=== PATIENT | female | born 1980 | race Caucasian/White ===

== ENCOUNTER 2018-02-22 18:26 | Emergency (ER) | payer SELFPAY ==
[2018-02-22 18:38] VITALS: BP 138/80; PULSE 96; RESP 20; TEMP 36.9; O2SAT 98; BMI 21.6
--- NOTE | 2018-02-22 18:38 | XR_ITS ---
XR knee RT 3V HISTORY: ITS.REASON: FELL DOWN STEPS ORDERING PHYSICIAN: Anamika Lopez PATIENT AGE: 37 years COMPARISON: None FINDINGS: No fracture or dislocation. No lytic or blastic change. Normal mineralization. No significant arthritic changes evident. No other significant findings IMPRESSION: Negative Knee
--- NOTE | 2018-02-22 19:13 | HMH.EDUTC ---
[facility] [place] Disposition Clinical Impression: Contusion, knee Qualifiers: Encounter type: initial encounter Laterality: right Qualified Code(s): S80.01XA - Contusion of right knee, initial encounter Disposition: Home, Self-Care Condition on Discharge: Good Instructions: DI for Knee Pain, How To Perform RICE (Rest, Ice, Compress, Elevate) Additional Instructions: *weight bearing as tolerated *RICE, Rest the extremity, Ice 15-20 minutes 3-4 times daily, Compress- wear the neil wrap as discussed as much as possible to help reduce swelling and pain, Elevate the extremity when at rest *Neil wrap is for support and help control swelling, use it except in the shower. Be sure that is not to tight but not to loose either *Elevate when resting *Ibuprofen every 6-8 hours as needed for pain an inflammation. If need something more can take Tylenol in between doses of Ibuprofen to help Immediately follow up for new or worsening of symptoms, or no noticeable improvement over the next 3-5 days Prescriptions: Ibuprofen [Ibuprofen 600mg Tab] 600 mg PO Q6H PRN #20 tab PRN Reason: Moderate Pain Referrals: Patrick Stevens MD [Staff Physician] - Jesus Willingham MD [Staff Physician] - Time of Disposition: 19:29 Medical Decision Making - Medical Records Medical records reviewed: Yes: I reviewed the patient's medical records. - Carlo Inquiry Pt receiving controlled substance: No Carlo was queried for this patient: No Vital Signs: 02/22/18 18:38 Temperature 98.5 F Temperature Source Temporal Artery Scan Pulse Rate [Right Brachial] 96 H Respiratory Rate 20 Blood Pressure [Right Arm] 138/80 Blood Pressure Mean [Right Arm] 99 Blood Pressure Source [Right Arm] Automatic Cuff Blood Pressure Position [Right Arm] Sitting 02 Sat by Pulse Oximetry 98 Oxygen Delivery Method Room Air - Lab Data Lab results reviewed: Yes: I reviewed the patient's lab results. Orders (Tests/Meds): ORDERS Category Date Time Status XR knee RT 3V Stat Exams 02/22/18 18:38 Taken - Radiology Data #1 Image(s): Knee Image Reviewed: Yes I reviewed the patient's radiology image w/the ED provider Preliminary Findings: No Fracture Seen [facility] [place] HPI - General Stated complaint: AO [id number] @2230 R Knee injury Time Seen by Provider: 02/22/18 18:50 Mode of Arrival: Family Vehicle Source of Information: Patient Limitations: No Limitations Description of Symptoms (Recalled from Triage Doc. by RN): S/P FALL DWON 3 STEPS. C/O RIGHT KNEE PAIN HEENT Symptoms (Recalled from RN notes): No Resp Symptoms (Recalled from RN notes): No Skin Symptoms (Recalled from RN notes): No MS Symptoms (Recalled from RN notes): Yes Functional Status (Recalled from RN notes): N/A - History of Present Illness Provider Complaint: Patient state that she was walking down steps last night when she lost her balance and fell down 3 steps and struck her right knee on the concrete State that ever since she has been having some pain in that knee States that she doesn't see any bruising but has a throbbing pain in the knee when she touches it - Related Data Previous Rx's Medication Instructions Recorded Ibuprofen [Ibuprofen 600mg Tab] 600 mg PO Q6H PRN #20 tab 02/22/18 Allergies Allergy/AdvReac Type Severity Reaction Status Date / Time No Known Allergies Allergy Verified 02/22/18 18:42 - Worker's Comp Is this a Worker's Comp case?: No [facility] History I have reviewed the patient's past medical history: Yes - Social History Smoking Status: Current every day smoker Tobacco Type: cigarettes Alcohol Intake: never - Psychiatric History Expresses thoughts of harming self/others: None Suicide Plan Description: No Plan ROS Obtained: Yes All systems reviewed & no additional complaints - Allergic/Immunologic Comments: Pain in right knee after falling on steps last night and landing on right knee Physical Exam - General General appearance: alert, in no apparent
--- NOTE | 2018-02-22 19:22 | ED_ITS ---
[facility] [place] Disposition Clinical Impression: Contusion, knee Qualifiers: Encounter type: initial encounter Laterality: right Qualified Code(s): S80.01XA - Contusion of right knee, initial encounter Disposition: Home, Self-Care Condition on Discharge: Good Instructions: DI for Knee Pain, How To Perform RICE (Rest, Ice, Compress, Elevate) Additional Instructions: *weight bearing as tolerated *RICE, Rest the extremity, Ice 15-20 minutes 3-4 times daily, Compress- wear the neil wrap as discussed as much as possible to help reduce swelling and pain, Elevate the extremity when at rest *Neil wrap is for support and help control swelling, use it except in the shower. Be sure that is not to tight but not to loose either *Elevate when resting *Ibuprofen every 6-8 hours as needed for pain an inflammation. If need something more can take Tylenol in between doses of Ibuprofen to help Immediately follow up for new or worsening of symptoms, or no noticeable improvement over the next 3-5 days Prescriptions: Ibuprofen [Ibuprofen 600mg Tab] 600 mg PO Q6H PRN #20 tab PRN Reason: Moderate Pain Referrals: Patrick Stevens MD [Staff Physician] - Jesus Willingham MD [Staff Physician] - Time of Disposition: 19:29 Medical Decision Making - Medical Records Medical records reviewed: Yes: I reviewed the patient's medical records. - Carlo Inquiry Pt receiving controlled substance: No Carlo was queried for this patient: No Vital Signs: 02/22/18 18:38 Temperature 98.5 F Temperature Source Temporal Artery Scan Pulse Rate [Right Brachial] 96 H Respiratory Rate 20 Blood Pressure [Right Arm] 138/80 Blood Pressure Mean [Right Arm] 99 Blood Pressure Source [Right Arm] Automatic Cuff Blood Pressure Position [Right Arm] Sitting 02 Sat by Pulse Oximetry 98 Oxygen Delivery Method Room Air - Lab Data Lab results reviewed: Yes: I reviewed the patient's lab results. Orders (Tests/Meds): ORDERS Category Date Time Status XR knee RT 3V Stat Exams 02/22/18 18:38 Taken - Radiology Data #1 Image(s): Knee Image Reviewed: Yes I reviewed the patient's radiology image w/the ED provider Preliminary Findings: No Fracture Seen [facility] [place] HPI - General Stated complaint: AO [id number] @2230 R Knee injury Time Seen by Provider: 02/22/18 18:50 Mode of Arrival: Family Vehicle Source of Information: Patient Limitations: No Limitations Description of Symptoms (Recalled from Triage Doc. by RN): S/P FALL DWON 3 STEPS. C/O RIGHT KNEE PAIN HEENT Symptoms (Recalled from RN notes): No Resp Symptoms (Recalled from RN notes): No Skin Symptoms (Recalled from RN notes): No MS Symptoms (Recalled from RN notes): Yes Functional Status (Recalled from RN notes): N/A - History of Present Illness Provider Complaint: Patient state that she was walking down steps last night when she lost her balance and fell down 3 steps and struck her right knee on the concrete State that ever since she has been having some pain in that knee States that she doesn't see any bruising but has a throbbing pain in the knee when she touches it - Related Data Previous Rx's Medication Instructions Recorded Ibuprofen [Ibuprofen 600mg Tab] 600 mg PO Q6H PRN #20 tab 02/22/18 Allergies Allergy/AdvReac Type Severity Reaction Status Date / Time No Known Allergies Allergy Verified 02/22/18 18:42
[2018-02-22 19:32] VITALS: BP 128/80; PULSE 90; RESP 20; TEMP 36.9; O2SAT 97
== END 2018-02-22 19:33 | disposition home or self-care (01) ==
PROVIDERS: Emergency Provider Nurse Practitioner
DX: S80.01XA Contusion of right knee, initial encounter (principal); W10.9XXA Fall (on) (from) unspecified stairs and steps, initial encounter; Y92.018 Other place in single-family (private) house as the place of occurrence of the external cause
CPT/HCPCS: 73562; 99201

== ENCOUNTER 2018-08-04 08:53 | Observation (INO) ==
[2018-08-04 09:11] LABS: Microscopic, Urine URINE MICROSCOPIC (MICROSCOPIC)
--- NOTE | 2018-08-04 09:21 | Emergency Department Note ---
ED Disposition Clinical Impression: Liver cirrhosis, Hepatitis C virus, Sciatica, Polysubstance (excluding opioids) dependence, Pancreatitis, Colitis Disposition: Home, Self-Care Condition on Discharge: Fair Instructions: DI for Low Back Pain Referrals: Maria Eugenia Chance APRN [Primary Care Provider] - - Critical Care Critical Care Time: No Attestation: On , the high probability of a clinically significant, sudden or life threatening deterioration of the following system(s) required my full and direct attention, intervention and personal management. The time I documented below is in addition to time spent performing reported procedures but includes the following listed in this critical care notation. Medical Decision Making - Carlo Inquiry Pt receiving controlled substance: No Carlo was queried for this patient: No Vital Signs: 08/04/18 09:02 08/04/18 09:08 08/04/18 11:15 Temperature 98.6 F 98.6 F Temperature Source Oral Oral Pulse Rate [Right Brachial] 101 H 101 H 61 Respiratory Rate 20 20 Blood Pressure [Right Arm] 102/67 102/67 100/61 Blood Pressure Mean [Right Arm] 78 78 74 Blood Pressure Source [Right Arm] Automatic Cuff Automatic Cuff Automatic Cuff Blood Pressure Position [Right Arm] Sitting Sitting Sitting 02 Sat by Pulse Oximetry 98 98 99 Oxygen Delivery Method Room Air Room Air 08/04/18 11:58 08/04/18 14:00 Temperature Temperature Source Pulse Rate [Right Brachial] 72 90 Respiratory Rate 18 Blood Pressure [Right Arm] 112/70 104/61 Blood Pressure Mean [Right Arm] 84 75 Blood Pressure Source [Right Arm] Automatic Cuff Automatic Cuff Blood Pressure Position [Right Arm] Sitting Sitting 02 Sat by Pulse Oximetry 99 96 Oxygen Delivery Method Room Air - Lab Data Lab Results 08/04/18 09:00: Urine Color Yellow, Urine Appearance Clear, Urine pH 6.0, Ur Specific [place] 1.025, Urine Protein Negative, Urine Glucose (UA) Negative, Urine Ketones Trace, Urine Blood Negative, Urine Nitrate Negative, Urine Bilirubin Negative, Urine Urobilinogen 4.0, Ur Leukocyte Esterase Trace, Urine RBC None, Urine WBC 3-5, Ur Squamous Epith Cells 3-5, Urine Bacteria 1+, Urine Mucus 2+ 08/04/18 09:00: Urine HCG, Qual Negative 08/04/18 09:20: WBC 7.4, RBC 4.14 L, Hgb 10.4 L, Hct 33.9 L, MCV 81.9, MCH 25.1 L, MCHC 30.7 L, RDW 19.0 H, Plt Count 209, MPV 8.9, Neut % (Auto) 60.6, Lymph % (Auto) 26.5, [place] % (Auto) 5.2, Eos % (Auto) 7.1, Baso % (Auto) 0.6, Neut # (Auto) 4.5, Lymph # (Auto) 2.0, [place] # (Auto) 0.4, Eos # (Auto) 0.5 H, Baso # (Auto) 0.0 08/04/18 09:20: Sodium 138, Potassium 3.3 L, Chloride 108 H, Carbon Dioxide 26, Anion Gap 7.3, BUN 8, Creatinine 0.87, Estimated Creat Clear 94, Estimated GFR 73, Est GFR ( Amer) 89, Glucose 136 H, Calcium 8.1 L, Total Bilirubin 0 .8, AST 66 H, ALT 65, Alkaline Phosphatase 105, Troponin I < 0.02, Total Protein 6.7, Albumin 2.3 L, Globulin 4.4 H, Albumin/Globulin Ratio 0.5 L, Lipase 233 08/04/18 09:20: Magnesium 1.8 08/04/18 10:38: Urine Opiates Screen Negative, Urine Methadone Screen Negative, Ur Barbituates Screen Negative, Ur Phencyclidine Scrn Negative, Ur Amphetamines Screen Positive H, U Benzodiazepines Scrn Negative, Urine Cocaine Screen Nega tive, U Marijuana (THC) Screen Positive H 08/04/18 10:50: Lactate 1.3 Result diagrams: 08/04/18 09:20 08/04/18 09:20 Orders (Tests/Meds): ED MEDICATIONS Generic Name Dose Route Start Last Admin Trade Name Freq PRN Reason Stop Dose Admin Metronidazole 100 mls @ 100 mls/hr 08/04/18 10:45 08/04/18 11:04 Flagyl 500mg/100ml Ivpb IV 08/18/18 10:44 100 mls/hr Q8H ALIS Administration Protocol Discontinued Medications Generic Name Dose Route Start Last Admin Trade Name Freq PRN Reason Stop Dose Admin Diatrizoate Meglum/Diatrizoate Sod 30 ml 08/04/18 11:15 08/04/18 11:19 Gastrografin 66%-10% 30ml PO 08/04/18 11:16 30 ml ONCE ONE Administration Famotidine 20 mg 08/04/18 09:18 08/04/18 09:33 Pepcid 20mg/2ml Vial IV 08/04/18 09:19 20 mg ONCE ONE Administration Iopamidol 75 ml 08/04/18 13:05 08/04/18 13:07 Rad-Isovue 300 75ml IV 08/04/18 13:06 75 ml ONCE ONE Administration Protocol Ketorolac Tromethamine 30 mg 08/04/18 09:18 08/04/18 09:33 Toradol 30mg/Ml Vial IV 08/04/18 09:19 30 mg ONCE ONE Administration Methylprednisolone Sodium Succinate 125 mg 08/04/18 09:18 08/04/18 09:33 Solu-Medrol 125mg/2ml Vial IV 08/04/18 09:19 125 mg ONCE ONE Administration Ondansetron HCl 4 mg 08/04/18 09:32 08/04/18 09:33 Zofran 4mg/2ml Vial IV 08/04/18 09:33 4 mg ONCE ONE Administration Potassium Chloride 20 meq 08/04/18 11:13 08/04/18 11:19 Klor-Con 20meq Tablet PO 08/04/18 11:14 20 meq ONCE ONE Administration Promethazine HCl 12.5 mg 08/04/18 11:19 08/04/18 11:26 Phenergan 25mg/Ml 1ml Vial IV 08/04/18 11:20 12.5 mg ONCE ONE Administration Sodium Chloride 25 ml 08/04/18 11:19 08/04/18 11:26 Sod Chlor 0.9% 25ml Bag IV 08/04/18 11:20 25 ml ONCE ONE Administration Sodium Chloride 10 ml 08/04/18 13:05 08/04/18 13:07 Rad-Saline Flush 10ml Syringe IV 08/04/18 13:06 10 ml ONCE ONE Administration ORDERS Category Date Time Status Blood Culture Stat Micro 08/04/18 10:50 Received - CT Data CT Scan: Abdomen, Pelvis Time Received: 10:[address] Reviewed: Yes: I have viewed the radiologist's interpretation Preliminary Findings: Abnormal Findings Narrative: MPRESSION: 1. Cirrhosis with portal hypertension 2. Mild diffuse stranding of the mesenteric fat is a small amount of fluid in right paracolic gutter and pelvis. This stranding could be related to cirrhosis with hypoproteinemia. Peritonitis is an additional consideration. Please correlate with clinical findings. 3. There are multiple unopacified bowel loops present within the abdomen/pelvis which could obscure or mimic pathology. If symptoms persists, consider repeating exam with IV and oral contrast administration 4. There is prominence of the pancreatic head incompletely evaluated without IV contrast 5. No renal or ureteral calculi or hydronephrosis Medical Decision Narrative: She was medicated with Toradol Solu-Medrol and Pepcid prior to evaluating her due to her discomfort secondary to pain. 10 minutes afterwards she vomited she was given Zofran with good result. Please see full examination and exam section. The patient nausea resolved but she continued to complain of pain. I spoke with Reina Chance her primary care physician later with Dr. Lutz who requested a surgical opinion before deciding what admitting her. 1100 have contacted on-call surgeon Dr. Jeferson To twice with no response so I ordered her CT scan with p.o. and IV contrast. The patient became nauseous and vomited her contrast. [address] Jeferson To who advised to get consult to gastroenterology, or only crime investigator special agent comes on Friday, to be calling [facility]. 1330 CT report: IMPRESSION: 1. Edematous appearance of the body and head of the pancreas with stranding of the peripancreatic fat and infiltration of the central mesenteric fat. Possibly related to pancreatitis. There is splenomegaly. Portal hypertension could also cause these findings. 2. Diffuse thickening of the ascending and proximal transverse colon consistent with colitis with a small amount fluid in the paracolic gutter on the right. I called [facility] spoke with Dr. Rita Butler about the above reading. She felt that the patient can be cared here at [facility] with the surgery backup. 14[address] called and spoke with Dr. Lutz went over the second CT scan report agreed to admit the patient for IVF and Iv Abx. Back Pain HPI - General Chief Complaint: Back Pain/Injury Stated Complaint: back pain Time Seen by Provider: 08/04/18 09:05 Mode of Arrival: Ambulatory Limitations: No Limitations Description of Symptoms (Recalled from ER Triage Doc. by RN): Pt c/o lower back pain on iraj sides of back, states pain began approx 1930 lastnight. Pt denies urinary symptoms - History of Present Illness HPI Narrative: 38 years old white female status post cholecystectomy and appendectomy who is currently on drug court due to prior Methadon IV drug abuse charge, she has been clean for 3 weeks. She has history of hepatitis C virus and liver cirrhosis. Yesterday at 7:30 PM, she developed lower back pain sharp in character worse this morning to 10/10 associated with radiation to the right lower extremity. Pain is radiating to the lateral aspect of the right lower extremity above the knee, the pain is worse with standing and walking. There is no numbness or tingling no weakness no loss of urine or bowel. She has no chest pain no palpitation no shortness of breath, she has no hemoptysis hemat emesis coffee-ground emesis melanotic stool or bleeding per. She has no dysuria hematuria or frequency. She did have history of back pain and a kidney stone 6 years ago. MD Complaint: back pain Onset (ago): hour(s) (14 hours) Duration: constant Similar Symptoms Previously: Yes Location: lumbar spine, sacrum Severity: severe Quality: sharp Radiation: right leg Severity scale (1-10): 10 Relieving factors: immobilization Exacerbating factors: movement Associated symptoms: denies other symptoms - Related Data Home Medications Medication Instructions Recorded Confirmed No Known Home Medications 08/04/18 08/04/18 Allergies Allergy/AdvReac Type Severity Reaction Status Date / Time No Known Allergies Allergy Verified 08/04/18 09:08 [facility] History I have reviewed the patient's past medical history: Yes Medical History: Reports:: Hepatitis Denies:: Cancer, Diabetes Mellitus Type 1, Diabetes Mellitus Type 2, MRSA Other Medical History: Reports: Other Other Surgeries: Yes: Appendectomy, Cholecystectomy Amputation: No Fractures: No - Social History Smoking Status: Current every day smoker Tobacco Type: cigarettes # Packs/Day (cigarettes): 1 #Yrs smoked (if former smoker): 25 Alcohol Intake: never Alcohol Intake Frequency:: 3 or more drinks per day Substance Use Type: unknown, former substance user, heroin, methamphetamine Occupational Status: unemployed Housing: house Household Members: family - Psychiatric History Expresses thoughts of harming self/others: None Suicide Plan Description: No Plan ROS Obtained: Yes All systems reviewed & no additional complaints Physical Exam - General General appearance: alert, in no apparent distress, anxious, other (The patient is slender and looks older than her stated age.) - Head Head exam: atraumatic, normocephalic, normal inspection - Eye Eye exam: Present: normal appearance, PERRL, EOMI. Absent: scleral icterus, nystagmus - ENT ENT exam: Present: normal exam, normal oropharynx, mucous membranes moist, TM's normal bilaterally, normal external ear exam - Neck Neck exam: Present: normal inspection, full ROM, trachea midline. Absent: tenderness, meningismus, lymphadenopathy - Chest Chest inspection: Present: normal inspection, symmetric chest wall rise. Absent: tenderness - Respiratory Respiratory exam: Present: normal lung sounds bilaterally. Absent: respiratory distress, wheezes, stridor - Cardiovascular Cardiovascular exam: Present: regular rate, normal rhythm, normal heart sounds. Absent: JVD - Abdominal Exam Abdominal exam: Present: soft, tenderness, normal bowel sounds, other (Patient is going has bilateral flank pain worse on the right than left.). Absent: distention, guarding, rebound, rigidity, Abdalla's sign, tenderness at McBurney's Point - External exam: Present: normal external exam - Extremities Exam Extremities exam: Present: normal inspection, full ROM, normal capillary refill. Absent: tenderness, calf tenderness - Back Exam Back exam: Present: normal inspection, tenderness, paraspinal tenderness, straight leg raise (R), other (She does have tenderness over the right paraspinal muscles and lower sacrum. ). Absent: CVA tenderness (R), CVA tenderness (L), vertebral tenderness - Neurological Exam Neurological exam: Present: alert, oriented X3, CN II-XII intact, motor sensory deficit, reflexes normal, other (The patient has an antalgic gait she has a straight leg raising 80 on the right 90 on the left. ) - Psychiatric Psychiatric exam: Present: normal affect, normal mood - Skin Skin exam: Present: warm, dry, intact, normal color - Lymphatic Lymphatic Findings: no adenopathy
[2018-08-04 09:26] LABS: Appearance,Urine CLEAR (Clear); Blood, Urine Negative (Negative); Color,Urine YELLOW (Yellow); Glucose,Urine (UA) Negative (Negative); Ketones,Urine TRACE (Negative); Leukocyte Esterase,Urine TRACE (Negative); Protein,Urine Negative (Negative); Specific Gravity, Urine 1.025 (1.005-1.030)
[2018-08-04 09:29] LABS: Bilirubin,Urine Negative (Negative)
[2018-08-04 09:33] LABS: Basophils % 0.6 % (0.1-2.0); Eosinophils # 0.5 K/mm3 (0.0-0.4); Eosinophils % 7.1 % (0.1-12.0); Hematocrit 33.9 % (37.0-47.0); Hemoglobin 10.4 g/dL (12.2-16.2); Lymphocytes % 26.5 K/mm3 (10-50); Mean Corpuscular HGB Conc 30.7 g/dL (31.8-35.4); Mean Corpuscular Hemoglobin 25.1 pg (27.0-31.2); Mean Corpuscular Volume 81.9 fl (81-99); Mean Platelet Volume 8.9 fl (7.4-10.4); Monocytes # 0.4 K/mm3 (0.1-1.0); Monocytes % 5.2 % (1.7-9.3); Neutrophils # 4.5 K/mm3 (1.8-7.8); Neutrophils % 60.6 % (37.0-80.0); Platelet Count 209 K/mm3 (142-424); Red Blood Count 4.14 M/mm3 (4.20-5.40); White Blood Count 7.4 K/mm3 (4.8-10.8)
[2018-08-04 09:37] LABS: Bacteria,Urine 1+ /lpf; Mucus,Urine 2+ /lpf
[2018-08-04 09:49] LABS: Alanine Aminotransferase 65 U/L (12-78); Albumin Level 2.3 gm/dL (3.4-5.0); Albumin/Globulin Ratio 0.5 (1.1-1.8); Alkaline Phosphatase 105 U/L (46-116); Anion Gap 7.3 mEq/L (5-15); Aspartate Amino Transferase 66 U/L (15-37); Bilirubin,Total 0.8 mg/dL (0.2-1.0); Blood Urea Nitrogen 8 mg/dL (7-18); Calcium 8.1 mg/dL (8.5-10.1); Carbon Dioxide 26 mmol/L (21.0-32.0); Chloride 108 mmol/L (98-107); Globulin 4.4 gm/dl (1.3-3.2); Glucose 136 mg/dL (74-106); Lipase 233 u/L (73-393); Potassium 3.3 mmoL/L (3.5-5.1); Sodium 138 mmol/L (136-145); Total Protein,Serum 6.7 gm/dL (6.4-8.2)
[2018-08-04 10:55] LABS: Amphetamine/Metha Screen,Urine Positive ng/mL (<1000); Barbiturates Screen,Urine Negative ng/mL (<200); Benzodiazepines Screen,Urine Negative ng/mL (<200); Cannabinoid Screen,Urine Positive ng/mL (<50); Cocaine Screen,Urine Negative ng/mL (<300); Methadone Screen,Urine Negative ng/mL (<300); Opiate Screen,Urine Negative ng/mL (<300); Phencyclidine Screen,Urine Negative ng/mL (<25)
--- NOTE | 2018-08-04 15:50 | Pharmacy Consult Notes ---
[facility] [place] Pharmacy VTE Monitoring - Patient Demographics Admission date: 08/04/18 Report Date: 08/04/18 Time: 15:49 Allergies/Adverse Reactions: Patient Allergies No Known Allergies Allergy (Verified 08/04/18 09:08) Height: 1.7 m Weight: 69.485 kg Patient Problems: Current Active Problems Liver cirrhosis (Acute) Hepatitis C virus (Acute) Sciatica (Acute) Polysubstance (excluding opioids) dependence (Acute) Pancreatitis (Acute) Colitis (Acute) - VTE Risk Labs: VTE Related Lab Results Hgb 10.4 g/dL (12.2-16.2) L 08/04/18 09:20 Hct 33.9 % (37.0-47.0) L 08/04/18 09:20 Plt Count 209 K/mm3 (142-424) 08/04/18 09:20 BUN 8 mg/dL (7-18) 08/04/18 09:20 Creatinine 0.87 mg/dL (0.55-1.02) 08/04/18 09:20 Estimated Creat Clear 94 mL/min (0-300) 08/04/18 09:20 - Prophylaxis VTE Prophylaxis Ordered?: Yes Types of VTE Prophylaxis: TEDS Knee High
[2018-08-05 06:39] LABS: Basophils % 0.1 % (0.1-2.0); Eosinophils # 0.1 K/mm3 (0.0-0.4); Eosinophils % 0.4 % (0.1-12.0); Hematocrit 31.1 % (37.0-47.0); Hemoglobin 9.5 g/dL (12.2-16.2); Lymphocytes # 1.8 K/mm3 (0.7-4.5); Lymphocytes % 12.8 K/mm3 (10-50); Mean Corpuscular HGB Conc 30.7 g/dL (31.8-35.4); Mean Corpuscular Hemoglobin 25.3 pg (27.0-31.2); Mean Corpuscular Volume 82.6 fl (81-99); Mean Platelet Volume 8.5 fl (7.4-10.4); Monocytes # 0.6 K/mm3 (0.1-1.0); Monocytes % 4.5 % (1.7-9.3); Neutrophils # 11.5 K/mm3 (1.8-7.8); Neutrophils % 82.2 % (37.0-80.0); Platelet Count 177 K/mm3 (142-424); Red Blood Count 3.76 M/mm3 (4.20-5.40); Red Cell Distribution Width 18.9 % (11.5-17.5)
[2018-08-05 06:49] LABS: Albumin Level 2.1 gm/dL (3.4-5.0); Albumin/Globulin Ratio 0.5 (1.1-1.8); Anion Gap 9.2 mEq/L (5-15); Bilirubin,Total 0.5 mg/dL (0.2-1.0); Globulin 4.1 gm/dl (1.3-3.2); Potassium 3.2 mmoL/L (3.5-5.1); Total Protein,Serum 6.2 gm/dL (6.4-8.2)
--- NOTE | 2018-08-05 08:22 | History & Physical Report ---
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 She has history of hepatitis C virus and liver cirrhosis. Yesterday at 7:30 PM, she developed lower back pain sharp in character worse this morning to 1010 associated with radiation to the right lower extremity. Pain is radiating to the lateral aspect of the right lower extremity above the knee, the pain is worse with standing and walking. There is no numbness or tingling no weakness no loss of urine or bowel. She has no chest pain no palpitation no shortness of breath, she has no hemoptysis hematemesis coffee-ground emesis melanotic stool or bleeding per. She has no dysuria hematuria or frequency. [facility] History I have reviewed the patient's past medical history: Yes Medical History: Reports:: Hepatitis Denies:: Cancer, Diabetes Mellitus Type 1, Diabetes Mellitus Type 2, MRSA Other Medical History: Reports: Other Other Surgeries: Yes: Appendectomy, Cholecystectomy, , Tubal Ligation Amputation: No Fractures: No - *Social History Smoking Status: Current every day smoker Tobacco Type: cigarettes # Packs/Day (cigarettes): 1 #Yrs smoked (if former smoker): 25 Alcohol Intake: former Alcohol Intake Frequency:: 3 or more drinks per day Substance Use Type: amphetamines Occupational Status: unemployed Housing: house Household Members: family - Psychiatric History Expresses thoughts of harming self/others: None Suicide Plan Description: No Plan Review of Systems - Review of Systems Review of systems:: pertinent systems reviewed and negative unless documented below - Constitutional Denies fever(s) - Eyes Denies change in vision - ENT Denies sore throat - *Cardiovascular Denies chest pain - *Respiratory Denies cough, Denies coughing up blood - *Gastrointestinal Reports abdominal pain, Reports nausea, Denies black, tarry stools, Denies vomiting - *Genitourinary Denies blood in urine - *Musculoskeletal Reports back pain, Denies joint pain - Integumentary/Breasts Denies rash - *Neurologic Denies confusion, Denies seizure-like activity - Psychiatric Reports anxiety Meds Home Medications Medication Instructions Recorded Confirmed Type No Known Home Medications 08/04/18 08/04/18 History Allergies Allergy/AdvReac Type Severity Reaction Status Date / Time No Known Allergies Allergy Verified 08/04/18 09:08 Exam Vital signs and Labs for Last 24 Hours: Temp Pulse Resp BP Pulse Ox 98.7 F 91 H 16 101/67 96 08/05/18 07:29 08/05/18 07:29 08/05/18 07:29 08/05/18 07:29 08/05/18 07:29 Laboratory Results - last 24 hr 08/04/18 09:00: Urine Color Yellow, Urine Appearance Clear, Urine pH 6.0, Ur Specific [place] 1.025, Urine Protein Negative, Urine Glucose (UA) Negative, Urine Ketones Trace, Urine Blood Negative, Urine Nitrate Negative, Urine Bilirubin Negative, Urine Urobilinogen 4.0, Ur Leukocyte Esterase Trace, Urine RBC None, Urine WBC 3-5, Ur Squamous Epith Cells 3-5, Urine Bacteria 1+, Urine Mucus 2+ 08/04/18 09:00: Urine HCG, Qual Negative 08/04/18 09:20: WBC 7.4, RBC 4.14 L, Hgb 10.4 L, Hct 33.9 L, MCV 81.9, MCH 25.1 L, MCHC 30.7 L, RDW 19.0 H, Plt Count 209, MPV 8.9, Neut % (Auto) 60.6, Lymph % (Auto) 26.5, [place] % (Auto) 5.2, Eos % (Auto) 7.1, Baso % (Auto) 0.6, Neut # (Auto) 4.5, Lymph # (Auto) 2.0, [place] # (Auto) 0.4, Eos # (Auto) 0.5 H, Baso # (Auto) 0.0 08/04/18 09:20: Sodium 138, Potassium 3.3 L, Chloride 108 H, Carbon Dioxide 26, Anion Gap 7.3, BUN 8, Creatinine 0.87, Estimated Creat Clear 94, Estimated GFR 73, Est GFR ( Amer) 89, Glucose 136 H, Calcium 8.1 L, Total Bilirubin 0.8, AST 66 H, ALT 65, Alkaline Phosphatase 105, Troponin I < 0.02, Total Protein 6.7, Albumin 2.3 L, Globulin 4.4 H, Albumin/Globulin Ratio 0.5 L, Lipase 233 08/04/18 09:20: Magnesium 1.8 08/04/18 10:38: Urine Opiates Screen Negative, Urine Methadone Screen Negative, Ur Barbituates Screen Negative, Ur Phencyclidine Scrn Negative, Ur Amphetamines Screen Positive H, U Benzodiazepines Scrn Negative, Urine Cocaine Screen Negative, U Marijuana (THC) Screen Positive H 08/04/18 10:50: Lactate 1.3 08/05/18 05:43: WBC 14.0 H D, RBC 3.76 L, Hgb 9.5 L, Hct 31.1 L, MCV 82.6, MCH 25.3 L, MCHC 30.7 L, RDW 18.9 H, Plt Count 177, MPV 8.5, Neut % (Auto) 82.2 H, Lymph % (Auto) 12.8, [place] % (Auto) 4.5, Eos % (Auto) 0.4, Baso % (Auto) 0.1, Neut # (Auto) 11.5 H, Lymph # (Auto) 1.8, [place] # (Auto) 0.6, Eos # (Auto) 0.1, Baso # (Auto) 0.0 08/05/18 05:43: Sodium 143, Potassium 3.2 L, Chloride 112 H, Carbon Dioxide 25, Anion Gap 9.2, BUN 9, Creatinine 0.67 D, Estimated Creat Clear 126, Estimated GFR 99, Est GFR ( Amer) 120 D, Glucose 100 D, Calcium 8.0 L, Magnesium 1.9, Total Bilirubin 0.5, AST 41 H D, ALT 54, Alkaline Phosphatase 109, Total Protein 6.2 L, Albumin 2.1 L, Globulin 4.1 H, Albumin/Globulin Ratio 0.5 L I & O for Last 24 hours: Intake & Output 08/02/18 08/03/18 08/04/18 08/05/18 11:59 11:59 11:59 11:59 Intake Total 350 / 350 Balance 350 / 350 Weight 148 lb 153 lb 3 oz - Constitutional no acute distress - *Routine HEENT Exam Head: Present: normocephalic Eye: Present: EOMI, PERRL ENT: Present: mucous membranes dry - *Routine Neck Exam Present: supple - *Routine Respiratory Exam Present: CTA bilaterally - *Routine Cardiovascular Exam Present: RRR, murmur - *Routine Abdominal Exam Present: soft. Absent: tenderness - *Routine Extremities Exam Absent: calf tenderness - Routine Back/Spine/Pelvis Exam Back/Spine: Present: paraspinal tenderness, pain with rotation. Absent: CVA tenderness - *Routine Skin Exam Present: intact - *Routine Neurological Exam Present: alert, oriented X3, CN II-XII intact - Routine Psychiatric Exam Present: normal affect Assessment and Plan (1) Colitis Current visit: Yes Status: Acute Category: Medical Code(s): K52.9 - Noninfective gastroenteritis and colitis, unspecified (2) Hepatitis C virus Current visit: Yes Status: Acute Category: Medical Code(s): B19.20 - Unspecified viral hepatitis C without hepatic coma (3) Liver cirrhosis Current visit: Yes Status: Acute Category: Medical Code(s): K74.60 - Unspecified cirrhosis of liver (4) Pancreatitis Current visit: Yes Status: Acute Category: Medical Code(s): K85.90 - Acute pancreatitis without necrosis or infection, unspecified (5) Tobacco use Current visit: Yes Status: Acute Category: Social Hx Code(s): Z72.0 - Tobacco use (6) Anemia Current visit: Yes Status: Acute Qualifiers: Anemia type: unspecified type Qualified Code(s): D64.9 - Anemia, unspecified Category: Medical Code(s): D64.9 - Anemia, unspecified (7) Lumbar pain Current visit: Yes Status: Acute Category: Medical Code(s): M54.5 - Low back pain
[2018-08-06 08:30] LABS: Basophils % 0.3 % (0.1-2.0); Eosinophils # 0.4 K/mm3 (0.0-0.4); Eosinophils % 5.3 % (0.1-12.0); Hematocrit 31.7 % (37.0-47.0); Hemoglobin 9.8 g/dL (12.2-16.2); Lymphocytes # 1.7 K/mm3 (0.7-4.5); Lymphocytes % 25.2 K/mm3 (10-50); Mean Corpuscular HGB Conc 30.8 g/dL (31.8-35.4); Mean Corpuscular Hemoglobin 25.4 pg (27.0-31.2); Mean Corpuscular Volume 82.5 fl (81-99); Mean Platelet Volume 10.6 fl (7.4-10.4); Monocytes # 0.3 K/mm3 (0.1-1.0); Neutrophils # 4.4 K/mm3 (1.8-7.8); Neutrophils % 64.1 % (37.0-80.0); Platelet Count 128 K/mm3 (142-424); Red Blood Count 3.84 M/mm3 (4.20-5.40); Red Cell Distribution Width 18.9 % (11.5-17.5); White Blood Count 6.8 K/mm3 (4.8-10.8)
[2018-08-06 08:45] LABS: Albumin/Globulin Ratio 0.5 (1.1-1.8); Anion Gap 10.4 mEq/L (5-15); Bilirubin,Total 0.6 mg/dL (0.2-1.0); Calcium 7.6 mg/dL (8.5-10.1); Globulin 4.1 gm/dl (1.3-3.2); Potassium 3.4 mmoL/L (3.5-5.1); Total Protein,Serum 6.1 gm/dL (6.4-8.2)
--- NOTE | 2018-08-06 08:50 | Discharge Summary ---
General - General Admission date:: 08/04/18 Discharge date: 08/06/18 HPI HPI: this is a wf who has 1 day hx of back pain with nausea with no fever and no diarrhea who presented to [facility] ed - white female status post cholecystectomy and appendectomy who is currently on drug court due to prior Methadon IV drug abuse charge, she has been clean for 3 weeks. She has history of hepatitis C virus and liver cirrhosis. Yesterday at 7:30 PM, she developed lower back pain sharp in character worse this morning to 10/10 associated with radiation to the right lower extremity. Pain is radiating to the lateral aspect of the right lower extremity above the knee, the pain is worse with standing and walking. There is no numbness or tingling no weakness no loss of urine or bowel. She has no chest pain no palpitation no shortness of breath, she has no hemoptysis hematemesis coffee-ground emesis melanotic stool or bleeding per. She has no dysuria hematuria or frequency. Hospital Course Hospital Course: ct spine:IMPRESSION: 1. Mild degenerative disc disease L2-L3 and L5-S1 with mild bulging disc at these levels 2. Ascites. There remains thickening of the cecum and ascending colon persistent infiltration of the central mesenteric fat ct abd and pelvis: IMPRESSION: 1. Edematous appearance of the body and head of the pancreas with stranding of the peripancreatic fat and infiltration of the central mesenteric fat. Possibly related to pancreatitis. There is splenomegaly. Portal hypertension could also cause these findings. 2. Diffuse thickening of the ascending and proximal transverse colon consistent with colitis with a small amount fluid in the paracolic gutter on the right. We will discharge home today with follow-up with GI in the clinic tomorrow. Arrange outpatient appointment for pain clinic for possible injections to help with pain in back. Follow-up in the office next week for repeat lab work Objective Vital signs: Temp Pulse Resp BP Pulse Ox 98.2 F 96 H 18 113/63 100 08/06/18 08:00 08/06/18 08:00 08/06/18 08:00 08/06/18 08:00 08/06/18 08:00 no acute distress - *Routine HEENT Exam Head: Present: normocephalic Eye: Present: EOMI ENT: Present: mucous membranes moist - *Routine Neck Exam Present: full ROM - *Routine Respiratory Exam Present: CTA bilaterally - *Routine Cardiovascular Exam Present: RRR - *Routine Abdominal Exam Present: soft, normoactive bowel sounds. Absent: tenderness, distended, rebound, guarding, firm - *Routine Extremities Exam Present: cyanosis, full ROM - Routine Back/Spine/Pelvis Exam Back/Spine: Present: full ROM, paraspinal tenderness - *Routine Skin Exam Present: intact - *Routine Neurological Exam Present: alert, oriented X3 - Routine Psychiatric Exam Present: normal affect, normal thought process Results Labs on day of discharge: Labs from last 24 hours 08/06/18 08/06/18 08/05/18 08:21 08:21 17:50 WBC 6.8 D RBC 3.84 L Hgb 9.8 L Hct 31.7 L MCV 82.5 MCH 25.4 L MCHC 30.8 L RDW 18.9 H Plt Count 128 L D MPV 10.6 H Neut % (Auto) 64.1 Lymph % (Auto) 25.2 [place] % (Auto) 5.0 Eos % (Auto) 5.3 Baso % (Auto) 0.3 Neut # (Auto) 4.4 Lymph # (Auto) 1.7 [place] # (Auto) 0.3 Eos # (Auto) 0.4 Baso # (Auto) 0.0 ESR Sodium 139 Potassium 3.4 L Chloride 109 H Carbon Dioxide 23 Anion Gap 10.4 BUN 5 L D Creatinine 0.90 D Estimated Creat Clear 94 Estimated GFR 70 Est GFR ( Amer) 85 D Glucose 160 H Calcium 7.6 L Total Bilirubin 0.6 AST 43 H ALT 54 Alkaline Phosphatase 91 Total Protein 6.1 L Albumin 2.0 L Globulin 4.1 H Albumin/Globulin Ratio 0.5 L Stool Occult Blood Negative 08/05/18 05:43 WBC RBC Hgb Hct MCV MCH MCHC RDW Plt Count MPV Neut % (Auto) Lymph % (Auto) [place] % (Auto) Eos % (Auto) Baso % (Auto) Neut # (Auto) Lymph # (Auto) [place] # (Auto) Eos # (Auto) Baso # (Auto) ESR 20 Sodium Potassium Chloride Carbon Dioxide Anion Gap BUN Creatinine Estimated Creat Clear Estimated GFR Est GFR ( Amer) Glucose Calcium Total Bilirubin AST ALT Alkaline Phosphatase Total Protein Albumin Globulin Albumin/Globulin Ratio Stool Occult Blood - Additional Comments rounded with karyna all orders per karyna DS: Diagnosis - Discharge Diagnosis (1) Colitis Status: Acute (2) Hepatitis C virus Status: Acute (3) Liver cirrhosis Status: Acute (4) Pancreatitis Status: Acute (5) Tobacco use Status: Acute (6) Anemia Status: Acute (7) Lumbar pain Status: Acute Discharge Plan - Patient Discharge Instructions ACTIVITY: Continue current activity DIET: continue same diet - Follow up Plan Follow up with: Fawad Lutz MD [Staff Physician] - 1 week Disposition: Home, Self-Care Prescriptions/Medication Reconciliation: New metroNIDAZOLE [Flagyl 500mg Tablet] 500 mg PO TID 10 Days #30 tab levoFLOXacin [Levaquin 500mg tab] 500 mg PO DAILY #5 tab
== END 2018-08-06 13:55 | disposition home or self-care (01) ==
LOC: ER 08:53 → 2ND 14:26 → OBSVTOIN 15:08 → INTOOBSV 15:08 → 2ND 15:09
PROVIDERS: ADMIT Emergency Medicine; ATTEND Emergency Medicine